=== PATIENT | male | born 1985 | race African-American/Black ===

== ENCOUNTER 2018-05-15 11:39 | Emergency (ER) | payer BC ==
[~2018-05-15] VITALS: Ht 175.3 cm; Wt 79.4 kg
[2018-05-15 12:16] VITALS: BP 132/92
[2018-05-15] MEDS ORDERED: Methocarbamol 750mg tab ORAL ONE (13:15)
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
[2018-05-15] MEDS ORDERED: ROBAXIN500 MG PO (13:21)
[2018-05-15] MEDS ORDERED: IBUPROFEN600 MG ORAL (13:21)
[2018-05-15 13:39] VITALS: BP 132/92
[2018-05-15] MEDS ORDERED: ALBUTEROL SULF8.5 GM INH (13:47)
== END 2018-05-15 13:49 | disposition home or self-care (01) ==
LOC: EMR 13:30
DX: S39.012A Strain of muscle, fascia and tendon of lower back, initial encounter (principal); S00.511A Abrasion of lip, initial encounter; V43.62XA Car passenger injured in collision with other type car in traffic accident, initial encounter; Y93.9 Activity, unspecified; Y92.410 Unspecified street and highway as the place of occurrence of the external cause
CPT/HCPCS: 99282